=== PATIENT | male | born 1960 | race Caucasian/White ===

== ENCOUNTER 2018-06-06 06:37 | Day surgery (SDC) ==
[2018-06-06] MEDS: BETADINE OPTH PREP OP PRN ×2 (06:55→07:26)
[2018-06-06] MEDS: TETRACAINE 0.5% UNIT-DOSE OP PRN ×2 (06:55→07:26)
[2018-06-06] MEDS: CYCLOGYL 2% OPTH OP PRN ×3 (06:56→07:06)
[2018-06-06] MEDS ORDERED: DEX-MOXI-KETOR OPTH INJ 1/0.5/0.4 MG/ML IO ONE (07:03)
[2018-06-06] MEDS ORDERED: LIDOCAINE 1% 20 ML MDV ID STA (07:03)
[2018-06-06] MEDS ORDERED: BSS WITH EPINEPHRINE OP ONE (07:03)
[2018-06-06] MEDS ORDERED: ZOFRAN 4 MG/2 ML IVP ONE (07:03)
[2018-06-06] MEDS ORDERED: LIDOCAINE 1%/PHENYLEPHRINE 1.5% BSS (SURGERY) INTRAOCULA ONE (07:03)
[2018-06-06] MEDS ORDERED: BRIMONIDINE TARTRATE 0.2% OPTH SOL OP PRN (07:03)
[2018-06-06 07:11] VITALS: TEMP 97.4
[2018-06-06] MEDS ORDERED: DIPRIVAN 20 ML VIAL IVP ONE (07:35)
[2018-06-06] MEDS ORDERED: VERSED ONE (07:35)
[2018-06-06] MEDS ORDERED: ZOFRAN 4 MG/2 ML ONE (07:35)
[2018-06-06] MEDS ORDERED: SUBLIMAZE ONE (07:35)
[2018-06-07 12:58] VITALS: BP 128/66
== END 2018-06-06 08:15 | disposition home or self-care (01) ==
LOC: SURG 06:37
PROVIDERS: ATTEND Ophthalmology
DX: H25.813 Combined forms of age-related cataract, bilateral (principal)